=== PATIENT | female | born 2000 | race Two or more races ===

== ENCOUNTER 2025-05-27 03:15 | Emergency (ER) | payer OTHER ==
[~2025-05-27] VITALS: Ht 157.5 cm; Wt 63.5 kg
[2025-05-27 03:27] VITALS: BP 131/78; O2SAT 98
[2025-05-27] MEDS ORDERED: DICLOFENAC POTA25 MG (03:27)
[2025-05-27] MEDS ORDERED: ORPHENADRINE CITRATE 30 MG/ML AMPUL IV STA (03:37)
[2025-05-27] MEDS ORDERED: METHYLPREDNISOLONE SOD SUCC 125 MG VIAL IV STA (03:38)
[2025-05-27] MEDS ORDERED: ORPHENADRINE CITRATE 30 MG/ML AMPUL ONE (03:43)
[2025-05-27] MEDS ORDERED: METHYLPREDNISOLONE SOD SUCC 125 MG VIAL ONE (03:43)
[2025-05-27] MEDS ORDERED: NORFLEX100MG PO (06:51)
[2025-05-27] MEDS ORDERED: DOLOGESIC 500-1 EACH PO (06:51)
== END 2025-05-27 06:57 ==
LOC: ER 03:54
DX: M62.838 Other muscle spasm (principal); F41.8 Other specified anxiety disorders; Z88.6 Allergy status to analgesic agent

== ENCOUNTER 2025-08-04 19:54 | Emergency (ER) | payer OTHER ==
[~2025-08-04] VITALS: Ht 165.1 cm; Wt 59.0 kg
[~2025-08-04 19:54] MED LIST: DICLOFENAC POTA25 MG; DOLOGESIC 500-1 EACH PO; NORFLEX100MG PO
[2025-08-04] MEDS ORDERED: DEXAMETHASONE SODIUM PHOSP/PF 10 MG/ML VIAL IV ONE (22:00)
[2025-08-04] MEDS ORDERED: ORPHENADRINE CITRATE 30 MG/ML AMPUL IM ONE (22:00)
[2025-08-04] MEDS ORDERED: ORPHENADRINE CITRATE 30 MG/ML AMPUL ONE (22:26)
[2025-08-04] MEDS ORDERED: DEXAMETHASONE SODIUM PHOSPHATE 4 MG/ML VIAL ONE (22:26)
[2025-08-04] MEDS ORDERED: LORazepam 2 MG/ML VIAL ONE (22:37)
[2025-08-04] MEDS ORDERED: ACETAMINOPHEN 325 MG TABLET PO ONE ×2 (23:00→23:26)
[2025-08-04] MEDS ORDERED: LORazepam 2 MG/ML VIAL IM ONE (23:00)
[2025-08-05 00:14] LABS: BASO % 0.4 % (0.1-1.2); EOS # 0.15 (0.04-0.54); EOS % 1.5 % (0.7-7.0); LYMPH # 1.65 (1.18-3.74); LYMPH % 17.0 % (19.3-53.1); MEAN PLATELET VOLUME 9.80 fl (9.4-12.4); MONO # 0.51 (0.24-0.82); MONO % 5.2 % (4.7-12.5); NEUT # 7.34 (1.56-6.13); NEUT % 75.5 % (34.0-71.1); RED CELL DISTRIBUTION WIDTH 14.6 % (11.6-14.4)
[2025-08-05 00:43] LABS: BUN CREA RATIO 17.0 (7.0-25.0); CREATININE SERUM 0.69 mg/dL (0.55-1.02); GFR 103.66; GLUCOSE FASTING 99.0 mg/dL (65-100); OSMOLALITY SERUM 281.0 MOSM/KG (275-295)
[2025-08-05 04:27] VITALS: BP 120/74; O2SAT 99
== END 2025-08-05 04:28 ==
LOC: ER 19:54
PROVIDERS: General Practice
DX: F41.0 Panic disorder [episodic paroxysmal anxiety] (principal); F44.5 Conversion disorder with seizures or convulsions; F43.9 Reaction to severe stress, unspecified; F41.9 Anxiety disorder, unspecified; M94.0 Chondrocostal junction syndrome [Tietze]; M62.838 Other muscle spasm; Z88.6 Allergy status to analgesic agent